=== PATIENT | male | born 1965 | race Caucasian/White ===

== ENCOUNTER 2020-01-01 04:31 | Emergency (ER) | payer OTHER ==
[~2020-01-01] VITALS: Ht 172.7 cm; Wt 88.5 kg
[2020-01-01] MEDS ORDERED: TYLENOL325 M1 PO (05:19)
[2020-01-01] MEDS ORDERED: ADVIL200 M1 PO (05:20)
[2020-01-01] MEDS ORDERED: NEURONTIN 400M400 M2 PO (05:21)
[2020-01-01 06:02] LABS: ABSOLUTE NEUTROPHILS 5.5 thou/uL (1.4-8.2); BASOPHILS 1.1 % (0.0-2.0); EOSINOPHILS 0.9 % (0.0-3.0); HEMATOCRIT 43.2 % (42.0-52.0); HEMOGLOBIN 14.8 gm/dL (14.0-18.0); LYMPHOCYTES 22.4 % (24.0-44.0); MCH 34.3 pg (26.0-34.0); MCHC 34.3 g/dL (28.0-37.0); MCV 99.9 fL (80.0-100.0); PLATELET COUNT 211 thou/uL (150-400); POLYS 68.6 % (36.0-66.0); RBC 4.33 mil/uL (4.50-6.00); RDW 13.1 % (10.5-14.5); WBC 8.1 thou/uL (4.0-11.0)
[2020-01-01 06:07] LABS: ANION GAP 11 mmol/L (7-16); BUN 30 mg/dL (7-18); CALCIUM 8.5 mg/dL (8.5-10.1); CHLORIDE 101 mmol/L (98-107); CO2 25 mmol/L (21-32); GLUCOSE 109 mg/dL (74-106); POTASSIUM 3.9 mmol/L (3.5-5.1); SODIUM 137 mmol/L (136-145)
[2020-01-01 06:11] LABS: ALBUMIN 3.9 g/dL (3.4-5.0); SGOT 26 U/L (15-37); SGPT 24 U/L (30-65); TOTAL BILIRUBIN 0.5 mg/dL (0.2-1.0); TOTAL PROTEIN 7.9 g/dL (6.4-8.2); TROPONIN-I <0.06 ng/mL (<0.06)
[2020-01-01 07:01] VITALS: BP 133/81
--- NOTE | 2020-01-01 11:04 | EKG ---
[facility] [place] [address] ELECTROCARDIOGRAM REPORT Name: NESBITTPATRICIA Room #: DEP [facility]#: [id number] Admission: 01/01/20 Attend Phys: Discharge: 01/01/20 Date of : 65 Report #: [id number] THIS REPORT FOR: cc: [facility] - Clinic physician unknown [facility] - Clinic physician unknown Aquiles Ortiz MD [facility] ~ THIS REPORT FOR: //name// [facility] ED Test Date: 2020-01-01 Test Time: 04:49:22 Pat Name: PATRICIA NESBITT Department: Room: Gender: Assisted Living Coordinator: [facility] : 1965 Requested By: Clifford Rangel Order Number: [id number] MD: Aquiles Ortiz Measurements Intervals [place] Rate: 90 P: 83 IA: 167 QRS: 94 QRSD: 108 T: 51 QT: 360 QTc: 441 Interpretive Statements Sinus rhythm Baseline wander in lead(s) V4 No previous ECG available for comparison Electronically Signed On 01-01-2020 11:03:59 CDT by Aquiles Ortiz [email or web address] <ELECTRONICALLY SIGNED> By: Aquiles Ortiz MD, FACC 01/01/20 [id number] Aquiles Ortiz MD, FACC /EPI
== END 2020-01-01 07:02 | disposition home or self-care (01) ==
LOC: ER 04:31
PROVIDERS: Emergency Medicine
DX: R00.2 Palpitations (principal); F17.210 Nicotine dependence, cigarettes, uncomplicated; Z98.890 Other specified postprocedural states; Z96.641 Presence of right artificial hip joint; Z79.899 Other long term (current) drug therapy